=== PATIENT | male | born 1970 | race Caucasian/White ===

== ENCOUNTER 2018-01-05 12:00 | Emergency (ER) | payer BC, MEDICARE ==
[2018-01-05 13:00] VITALS: BP 112/71
--- NOTE | 2018-01-05 13:47 | UC ---
FLU HPI - HPI Summary HPI Summary: Pt presents with slight dry cough, body aches, and tiredness since last night. He has not taken anything OTC for his symptoms. Has felt feverish, but has not taken his temperature. Denies chills, sinus symptoms, SOB, chest pain, abdominal pain, n/v/d/c. He is asking to be tested for the flu. - History of Current Complaint Hx Obtained From: Patient Onset/Duration: Sudden Onset Severity Currently: Mild Severity Initially: Mild Pain Intensity: 2 Pain Scale Used: 0-10 Numeric <Lavell Metzger - Last Filed: 01/06/18 00:11> <Chantell Ramirez - Last Filed: 01/06/18 09:29> - History of Current Complaint Chief Complaint: UCGeneralIllness Stated Complaint: back pain Time Seen by Provider: 01/05/18 13:16 - Allergy/Home Medications Allergies/Adverse Reactions: Allergies Allergy/AdvReac Type Severity Reaction Status Date / Time No Known Allergies Allergy Verified 01/05/18 12:53 PMH/Surg Hx/FS Hx/Imm Hx Previously Healthy: Yes - Surgical History Surgical History: Yes Surgery Procedure, Year, and Place: [facility] 2015 - Family History Known Family History: Positive: Cardiac Disease, Hypertension, Diabetes - Social History Alcohol Use: None Alcohol Amount: history Substance Use Type: None Substance Use Comment - Amount & Last Used: history Smoking Status (MU): Former Smoker <Lavell Metzger - Last Filed: 01/06/18 00:11> Review of Systems Constitutional: Fatigue, Other - Body aches Skin: Negative Eyes: Negative ENT: Negative Respiratory: Cough Cardiovascular: Negative Gastrointestinal: Negative Neurological: Negative Psychological: Negative All Other Systems Reviewed And Are Negative: Yes <Lavell Metzger - Last Filed: 01/06/18 00:11> Physical Exam Triage Information Reviewed: Yes Appearance: Well-Appearing, No Pain Distress, Well-Nourished Vital Signs: Initial Vital Signs Temp 98.8 F 01/05/18 12:54 Pulse 73 01/05/18 12:54 Resp 16 01/05/18 12:54 BP 112/71 01/05/18 12:54 Pulse Ox 99 01/05/18 12:54 Vital Signs Reviewed: Yes Eyes: Positive: Conjunctiva Clear. Negative: Conjunctiva Inflamed, Discharge ENT: Positive: Hearing grossly normal, Pharynx normal, TMs normal. Negative: Pharyngeal erythema, Nasal congestion, Nasal drainage, TM bulging, TM dull, TM red, Tonsillar swelling, Tonsillar exudate, Hoarse voice, Sinus tenderness, Uvula midline Neck: Positive: Supple, Nontender, No Lymphadenopathy Respiratory: Positive: Chest non-tender, Lungs clear, Normal breath sounds, No respiratory distress, No accessory muscle use Cardiovascular: Positive: RRR, No Murmur, Pulses Normal Neurological: Positive: Alert Psychological: Positive: Age Appropriate Behavior Skin: Negative: rashes <Lavell Metzger - Last Filed: 01/06/18 00:11> Vital Signs: Initial Vital Signs Temp 98.8 F 01/05/18 12:54 Pulse 73 01/05/18 12:54 Resp 16 01/05/18 12:54 BP 112/71 01/05/18 12:54 Pulse Ox 99 01/05/18 12:54 <Chantell Ramirez - Last Filed: 01/06/18 09:29> Flu Course/Dx - Course Course Of Treatment: POC flu negative. Suspect viral illness. Pt has not tried anything OTC and his symptoms have been present less than 24 hours - I advised him to try conservative treatment such as rest, fluids, and ibuprofen as needed. - Differential Dx/Diagnosis Provider Diagnoses: Viral illness <Lavell Metzger - Last Filed: 01/06/18 00:11> Discharge <Lavell Metzger - Last Filed: 01/06/18 00:11> <Chantell Ramirez - Last Filed: 01/06/18 09:29> - Discharge Plan Condition: Stable Disposition: HOME Patient Education Materials: Viral Syndrome (ED) Referrals: Carlos Torres MD [Primary Care Provider] - Additional Instructions: If you develop a fever, shortness of breath, chest pain, new or worsening symptoms - please call your PCP or go to the ED. Attestation Statement User Type: Provider - I was available for consult. This patient was seen by the advanced practice provider. The patient was not presented to, seen by, or examined by me.-Bebeto <Chantell Ramirez - Last Filed: 01/06/18 09:29>
== END 2018-01-05 14:03 | disposition home or self-care (01) ==
LOC: UCEAST 12:00
DX: B34.9 Viral infection, unspecified (principal); Z87.891 Personal history of nicotine dependence
CPT/HCPCS: 87502; 99211; G0463

== ENCOUNTER → 2018-02-13 13:22 | Emergency (ER) | payer BC, MEDICARE ==
[2018-02-13 13:40] VITALS: BP 114/73
--- NOTE | 2018-02-13 14:13 | UC ---
General HPI - HPI Summary HPI Summary: This is an otherwise healthy 47 yo male who presents with a constellation of symptoms. His major concern is swollen lymph nodes in his neck for the last month or so. He also reports some occasional R groin and RLQ abd discomfort with testicular pain. He has a known h/o genital herpes and has treated 2 recent outbreaks. No current genital lesions. No fevers. He has had some mild sinus symptoms over the last couple of days. He traveled to [facility] last month and had an acute GI illness shortly after returning home that has since resolved. No changes in weight. He has occasional non-soaking night sweats, but states this has been ongoing for quite some time. - History of Current Complaint Chief Complaint: UCRespiratory Stated Complaint: SWOLLEN GLANDS Time Seen by Provider: 02/13/18 13:48 Pain Intensity: 2 - Allergy/Home Medications Allergies/Adverse Reactions: Allergies Allergy/AdvReac Type Severity Reaction Status Date / Time No Known Allergies Allergy Verified 02/13/18 13:40 Home Medications: Home Medications Imiquimod 5 % EX 02/13/18 [History] Melatonin 5 mg PO 02/13/18 [History] Multivitamin [Multivitamins] 1 cap PO 02/13/18 [History] Naproxen Sodium 220 mg PO 02/13/18 [History] Valacyclovir HCl [Valtrex] 500 mg PO 02/13/18 [History] guaiFENesin [Mucinex] 600 mg PO 02/13/18 [History] PMH/Surg Hx/FS Hx/Imm Hx Previously Healthy: Yes - Surgical History Surgical History: Yes Surgery Procedure, Year, and Place: [facility] 2015 - Family History Known Family History: Positive: Cardiac Disease, Hypertension, Diabetes - Social History Alcohol Use: None Alcohol Amount: history Substance Use Type: None Substance Use Comment - Amount & Last Used: history Smoking Status (MU): Former Smoker Review of Systems Constitutional: Negative Skin: Negative Eyes: Negative ENT: Sore Throat Respiratory: Negative Cardiovascular: Negative Gastrointestinal: Negative Genitourinary: Negative Motor: Negative Neurovascular: Negative Musculoskeletal: Negative Neurological: Negative Psychological: Negative Is Patient Immunocompromised?: No All Other Systems Reviewed And Are Negative: Yes Physical Exam Triage Information Reviewed: Yes Appearance: Well-Appearing - accompanied by his Vital Signs: Initial Vital Signs Temp 97.8 F 03/25/18 13:35 Pulse 65 02/13/18 13:35 Resp 18 02/13/18 13:35 BP 114/73 02/13/18 13:35 Pulse Ox 98 02/13/18 13:35 Vital Signs Reviewed: Yes ENT: Positive: TM dull. Negative: Pharyngeal erythema Neck: Positive: Supple, Nontender, Enlarged Nodes @ - mild anterior/ submandibular LAD Respiratory: Positive: Lungs clear, Normal breath sounds. Negative: Crackles, Rhonchi, Wheezing Cardiovascular: Positive: RRR, No Murmur Abdomen Description: Positive: Nontender, Soft, Other: - no groin LAD Male Genital Exam: Positive: Normal Genitalia Musculoskeletal Exam: Normal Neurological Exam: Normal Psychological Exam: Normal Skin Exam: Normal Diagnostics - Laboratory Diagnostic Studies Completed/Ordered: UA - WNL Course/Dx - Course Course Of Treatment: 47 yo male with c/o cervical LAD, R groin and testicular discomfort. Mild cervical LAD on exam. Due to length of symptoms ordered CBC, CMP and monospot with instructions to follow up with PCP regarding results. No empiric treatment initiated today. - Differential Dx - Multi-Symptom Provider Diagnoses: 1. lymphadenopathy. 2. RLQ abd discomfort Discharge - Sign-Out/Discharge Documenting (check all that apply): Discharge - Discharge Plan Condition: Stable Disposition: HOME Patient Education Materials: Lymphadenopathy (ED) Referrals: Carlos Torres MD [Primary Care Provider] - 2 Days (please call for an appointment) Additional Instructions: Instructions: 1. Please call your PCP's office to request an appointment to review the lab testing collected today 2. Your urinanalysis is normal - Billing Disposition and Condition Condition: STABLE Disposition: HOME
[2018-02-14 10:41] LABS: ABS Basophils 0 10^3/ul (0-0.2); ABS Eosinophils 0.2 10^3/ul (0-0.6); ABS Lymphocytes 1.8 10^3/ul (1.0-4.8); ABS Monocytes 0.4 10^3/ul (0-0.8); ABS Neutrophils 2.6 10^3/ul (1.5-7.7); ABS Nucleated RBC 0 10^3/ul; Eosinophil % 4.7 % (0-6); Hematocrit 46 % (42-52); Hemoglobin 15.5 g/dl (14.0-18.0); Lymphocyte % 34.8 % (25-47); Mean Corpuscular HGB Conc 34 g/dl (31-36); Mean Corpuscular Hemoglobin 30 pg (27-31); Mean Corpuscular Volume 91 fL (80-94); Mean Platelet Volume 10.1 um3 (7.4-10.4); Nucleated Red Blood Cells % 0.2; Platelet Count 167 10^3/ul (150-450); Red Blood Count 5.11 10^6/ul (4.0-5.4); Red Cell Distribution Width 14 % (10.5-15)
[2018-02-14 10:53] LABS: EGFR Non-African American 92.4 (>60)
--- NOTE | 2018-02-14 16:23 | UC ---
- Progress Note Progress Note: CBC and CMP WNL. F/u with PCP as instructed at UC visit. Discharge - Sign-Out/Discharge Documenting (check all that apply): Post-Discharge Follow Up - Discharge Plan Condition: Stable Disposition: HOME Patient Education Materials: Lymphadenopathy (ED) Referrals: Carlos Torres MD [Primary Care Provider] - 2 Days (please call for an appointment) Additional Instructions: Instructions: 1. Please call your PCP's office to request an appointment to review the lab testing collected today 2. Your urinanalysis is normal - Billing Disposition and Condition Condition: STABLE Disposition: HOME
== END | disposition home or self-care (01) ==
LOC: UCEAST 13:22
DX: R59.0 Localized enlarged lymph nodes (principal); R10.31 Right lower quadrant pain; N50.811 Right testicular pain; Z87.891 Personal history of nicotine dependence
CPT/HCPCS: 36415; 80053; 81003; 85025; 86308; 87491; 87591; 99211; G0463